=== PATIENT | female | born 1980 | race Two or more races ===

== ENCOUNTER 2016-04-28 16:44 | Emergency (ER) | payer MEDICAID ==
[~2016-04-28] VITALS: Wt 77.5 kg
[~2016-04-28 16:44] MED LIST: AZIT250T94 PO; BENZ100C70 PO; CETI10CA PO; CYCL5TAB PO; FERR-31 PO; FLUT9.9S NASAL; FOLI-49 PO; GUAI118L94 PO; HYDR-3498 PO; HYDR-3720 PO; IBUP-1542 PO; IBUP800T25 PO; METH-70 PO; OMEP20CA9 PO; PRED20TA PO; PREN-29 PO
[2016-04-28] MEDS ORDERED: BENZ100C70 PO (18:18)
[2016-04-28] MEDS ORDERED: AZIT250T94 PO (18:18)
[2016-04-28] MEDS ORDERED: IBUP-1542 PO (18:19)
[2016-04-28] MEDS ORDERED: D-ME473S2 PO (18:19)
--- NOTE | 2016-04-28 19:53 | ERD ---
ER Documentation Chief Complaint Date/Time DATE: 04/28/16 TIME: 19:50 Chief Complaint cough HPI Patient is a 35-year-old female who presents to the ED with cough for 3 weeks. She also states that she has had tactile fevers at home. Denies hemoptysis, night sweats or green sputum. Denies shortness of breath or difficulty breathing. Denies chest pain. Denies abdominal pain, nausea, vomiting or diarrhea. She also complains of sore throat and runny nose. Denies headache, dizziness or ear pain. States that multiple people in her household have had similar symptoms. Denies leg pain or swelling. Denies recent travel or recent surgeries or OCP use. ROS All systems reviewed and are negative except as per history of present illness. Medications Home Meds Active Scripts Ibuprofen* (Motrin*) 600 Mg Tab, 600 MG PO Q6, #30 TAB Prov:TIRSOTARIANJUANAZ PA-C 04/28/16 Dextromethorphan Hb-Promethazine Hcl* (Promethazine DM* Syrup) 473 Ml Syrup, 5 ML PO Q6 Y for COUGH for 7 Days, ML Prov:TIRSOTARIANCLARENCE PA-C 04/28/16 Benzonatate* (Tessalon Perle*) 100 Mg Capsule, 100 MG PO Q8H Y for COUGH for 14 Days, CAP Prov:CLARENCE NEVAREZ PA-C 04/28/16 Azithromycin* (Zithromax*) 250 Mg Tablet, 250 MG PO .ZPACK DIRECTED, #6 TAB TAKE 500 MG (2 TABS) THE FIRST DAY THEN 250 MG (1 TAB) DAYS 2-5 Prov:CLARENCE NEVAREZ PA-C 04/28/16 Benzonatate* (Tessalon Perle*) 100 Mg Capsule, 100 MG PO Q8H Y for COUGH, #20 CAP Prov:ARACELI BUCHANAN MD 11/05/15 Ibuprofen* (Motrin*) 600 Mg Tab, 600 MG PO Q6H Y for PAIN AND OR ELEVATED TEMP, #30 TAB Prov:ARACELI BUCHANAN MD 11/05/15 Omeprazole* (Prilosec*) 20 Mg Capsule.dr, 20 MG PO DAILY, #30 CAP Prov:LEANNE MOJICA NP 08/19/15 Fluticasone Propionate (Flonase Allergy Relief) 9.9 Ml [place].susp, 1 SPRAY NASAL BID, #1 BOTTLE TO EACH NOSTRIL Prov:LEANNE MOJICA NP 08/19/15 Cetirizine Hcl* (Zyrtec*) 10 Mg Capsule, 10 MG PO DAILY, #30 TAB.CHEW Prov:LEANNE MOJICA NP 08/19/15 Guaifenesin-Codeine Phosphate* (Guaifenesin* with Codeine Liq) 120 Ml Liquid, 5 ML PO Q4H for COUGH, #60 ML Prov:LEANNE MOJICA NP 08/19/15 Hydrocodone Bit-Acetaminophen* ([place]*) 5-325 Mg Tab, 1 TAB PO Q6 Y for PAIN, # 20 TAB Prov:LEANNE MOJICA NP 08/19/15 Ibuprofen* (Motrin*) 600 Mg Tab, 600 MG PO Q6H Y for PAIN AND OR ELEVATED TEMP, #30 TAB Prov:LEANNE MOJICA NP 08/19/15 Cyclobenzaprine Hcl* (Cyclobenzaprine Hcl*) 5 Mg Tablet, 5 MG PO Q8H Y for MUSCLE SPASMS, #15 TAB Prov:LEANNE MOJICA NP 08/19/15 Benzonatate* (Tessalon Perle*) 100 Mg Capsule, 100 MG PO Q8H Y for COUGH, #30 CAP Prov:ROSALIND SWAINC 07/30/15 Cetirizine Hcl* (Zyrtec*) 10 Mg Capsule, 10 MG PO DAILY, #30 TAB.CHEW Prov:ROSALIND SWAIN-C 07/30/15 Cetirizine Hcl* (Zyrtec*) 10 Mg Capsule, 10 MG PO DAILY, #10 TAB.CHEW Prov:DICK VALENTIN NP 07/10/15 Azithromycin* (Zithromax*) 250 Mg Tablet, 250 MG PO .MARTIN DIRECTED, #6 TAB TAKE 500 MG (2 TABS) THE FIRST DAY THEN 250 MG (1 TAB) DAYS 2-5 Prov:EFRAIN HENAO DO 05/27/15 Prednisone* (Prednisone*) 20 Mg Tab, 60 MG PO DAILY for 5 Days, TAB Prov:RAFA HENAOSTOLOS A. DO 05/27/15 Ibuprofen* (Motrin*) 800 Mg Tab, 800 MG PO Q6H Y for PAIN AND OR ELEVATED TEMP, #30 TAB Prov:RAFA HENAOSTOLOS A. DO 05/27/15 Methocarbamol* (Robaxin*) 750 Mg Tablet, 750 MG PO TID, #30 TAB Prov:JULIANORAFASTOLOS A. DO 05/27/15 Hydrocodone Bit-Acetaminophen* ([place]*) 7.5-325 Tablet, 2 TAB PO Q4H Y for PAIN , #30 TAB Prov:RAFA HENAOSTOLOS A. DO 05/27/15 Azithromycin* (Zithromax*) 250 Mg Tablet, 250 MG PO .ZPACK DIRECTED, #6 TAB TAKE 500 MG (2 TABS) THE FIRST DAY THEN 250 MG (1 TAB) DAYS 2-5 Prov:ESTELLE CASTELLANOS PA-C 04/12/15 Prednisone* (Prednisone*) 20 Mg Tab, 40 MG PO DAILY for 4 Days, TAB Prov:ESTELLE CASTELLANOS PA-C 04/12/15 Benzonatate* (Tessalon Perle*) 100 Mg Capsule, 100 MG PO Q8H Y for COUGH, #30 CAP Prov:ARACELI BUCHANAN MD 04/05/15 Reported Medications Folic Acid* (Folic Acid*) 1 Mg Tablet, 1 MG PO DAILY, TAB 05/22/14 Ferrous Sulfate (Iron Supplement) 1 Tab Tablet, 1 TAB PO DAILY 05/22/14 Vit-Fe Fumarate-FA* (Pk Tablet*) 1 Tab Tablet, 1 TAB PO DAILY, TAB 05/22/14 Allergies Allergies: Coded Allergies: No Known Allergy (Unverified , 08/19/15) PMhx/Soc History of Surgery: No Anesthesia Reaction: No Hx Neurological Disorder: No Hx Respiratory Disorders: No Hx Cardiac Disorders: No Hx Psychiatric Problems: No Hx Miscellaneous Medical Probl: No Hx Alcohol Use: No Hx Substance Use: No Hx Tobacco Use: No Smoking Status: Never smoker FmHx Family History: No coronary disease, No diabetes, No other Physical Exam Vitals Vital Signs Date Time Temp Pulse Resp B/P Pulse Ox O2 Delivery O2 Flow Rate FiO2 04/28/16 16:47 99.2 99 20 128/69 99 Physical Exam GENERAL: Well-developed, well-nourished female. Appears in no acute distress. HEAD: Normocephalic, atraumatic. EYES: Pupils are equally reactive bilaterally. EOMs grossly intact. No conjunctival erythema. ENT: Moist mucous membranes. No uvula deviation. No kissing tonsils. No exudates. NECK: Supple. No lymphadenopathy or thyromegaly. No meningismus. negative kernig. negative brudinski. LUNG: Clear to auscultation bilaterally. No rhonchi, wheezing, rales or coarse breath sounds. HEART: Regular rate and rhythm. No murmurs, rubs or gallops. Extremities: Equal pulses bilaterally. No peripheral clubbing, cyanosis or edema. No unilateral leg swelling. NEUROLOGIC: Alert and oriented. Moving all four extremities. 5/5 strength in all extremities. Normal speech. Steady gait. SKIN: Normal color. Warm and dry. No rashes or lesions. Capillary refill < 2 seconds Procedures/MDM ER COURSE: I kept the patient and/or family informed of laboratory and diagnostic imaging results throughout the emergency room course. MEDICAL DECISION MAKING: This is a 35-year-old female who presents with cough, runny nose and sore throat. Vital signs were reviewed. Patient is afebrile. Patient is not hypoxic. Patient is not toxic or ill-appearing. Patient refused chest x-ray in the ED and did not want to wait for results or to have the xray done. I explained the risks versus benefits of it and advised her that we cannot rule out penumonia or other pulmonary emergencies. Patient understood and agreed with no chest xray in the ED. Patient was only requesting medicine and was in a ward to leave the ED. Patient has cough of unknown etiology. Low suspicion for pneumonia, PE , pneumothorax, ACS, epiglottitis, obstruction, TB, pertussis, meningitis, sepsis. PERC Criteria Assessment: Age > 50: No HR > 100: No 02 < 95%: No H/o DVT/PE: No Recent trauma/surgery: No Hemoptysis: No Exogenous Estrogen: No Unilateral Leg swelling: No Pretest probability > 15%: No [Less than 2% risk of PE. No further work up is necessary] DISCHARGE: At this time, patient is stable for discharge and outpatient management with no new complaints during the ER course. Patient was sent home with azithromycin, Tessalon Perles, Promethazine DM and Motrin. Patient will be discharged home with instructions to recheck for new or worsening symptoms such as fever, nausea , weakness, LOC and to follow up with primary care in the next 1-2 days. Patient was advised to return to the ER for any new or worsening symptoms. Plan was discussed and patient and/or family understands and agrees. Home instructions were given. Departure Diagnosis: Primary Impression: Cough Condition: Stable Patient Instructions: Cough, Chronic, Uncertain Cause, (Adult) Additional Instructions: Call your primary care doctor TOMORROW for an appointment during the next 1-2 days.See the doctor sooner or return here if your condition worsens before your appointment time. CLARENCE NEVAREZ PA-C Apr 28, 2016 19:53
== END 2016-04-28 18:28 | disposition home or self-care (01) ==
LOC: FTE 16:44
DX: R05 Cough (principal)
CPT/HCPCS: 99284

== ENCOUNTER 2016-05-02 15:08 | Emergency (ER) | payer MEDICAID ==
[~2016-05-02] VITALS: Wt 77.8 kg
[~2016-05-02 15:08] MED LIST changes: +D-ME473S2 PO
--- NOTE | 2016-05-02 15:36 | EN ---
Date/Time of Note Date/Time of Note DATE: 05/02/16 TIME: 15:34 ER Progress Note This is a 35-year-old female who was evaluated in [facility] presenting to the emergency room complaining of cough for the past 6 months, patient states that the cough has been worsening. Patient is requesting a blood test however I discussed with this discussion of the next provided I will see her. On examination patient's had mild wheezing bilaterally, her pulse ox 90%. She is breathing well on room air without any evidence of respiratory distress. Patient patient will need to be sent to ER to for a chest x-ray for cough. ENEIDA MERLOS PA-C May 02, 2016 15:36
--- NOTE | 2016-05-02 16:31 | ERA ---
ER Documentation Chief Complaint Date/Time DATE: 05/02/16 TIME: 16:30 Chief Complaint cough and intermittent fevers for a few week. HPI The patient is a 35-year-old female, presenting to the ER because of chronic cough for more than 6 months with chronic nasal congestion. She denies fever, chills, neck pain, chest pain, dyspnea, abdominal pain, vomiting, diarrhea, dysuria; she does not smoke, drink Past medical/surgical history: None ROS All systems reviewed and are negative except as per history of present illness. Medications Home Meds Active Scripts Fluticasone Propionate (Flonase Allergy Relief) 9.9 Ml [place].susp, 2 SPRAY NASAL DAILY, #1 BOTTLE TO EACH NOSTRIL Prov:BUBBA VILCHIS MD 05/02/16 Promethazine HCl/Codeine (Prometh-Codein 6.25-10 mg/5 ml) 5 Ml Syrup, 5 ML PO Q4 for COUGH, #120 Prov:BUBBA VILCHIS MD 05/02/16 Ibuprofen* (Motrin*) 600 Mg Tab, 600 MG PO Q6, #30 TAB Prov:CLARENCE NEVAREZ PA-C 04/28/16 Dextromethorphan Hb-Promethazine Hcl* (Promethazine DM* Syrup) 473 Ml Syrup, 5 ML PO Q6 Y for COUGH for 7 Days, ML Prov:CLARENCE NEVAREZ-C 04/28/16 Benzonatate* (Tessalon Perle*) 100 Mg Capsule, 100 MG PO Q8H Y for COUGH for 14 Days, CAP Prov:CLARENCE NEVAREZ PA-C 04/28/16 Azithromycin* (Zithromax*) 250 Mg Tablet, 250 MG PO .ZPACK DIRECTED, #6 TAB TAKE 500 MG (2 TABS) THE FIRST DAY THEN 250 MG (1 TAB) DAYS 2-5 Prov:CLARENCE NEVAREZ-C 04/28/16 Benzonatate* (Tessalon Perle*) 100 Mg Capsule, 100 MG PO Q8H Y for COUGH, #20 CAP Prov:ARACELI BUCHANAN MD 11/04/ Ibuprofen* (Motrin*) 600 Mg Tab, 600 MG PO Q6H Y for PAIN AND OR ELEVATED TEMP, #30 TAB Prov:ARACELI BUCHANAN MD 11/05/15 Omeprazole* (Prilosec*) 20 Mg Capsule.dr, 20 MG PO DAILY, #30 CAP Prov:LEANNE MOJICA NP 08/19/15 Fluticasone Propionate (Flonase Allergy Relief) 9.9 Ml [place].susp, 1 SPRAY NASAL BID, #1 BOTTLE TO EACH NOSTRIL Prov:LEANNE MOJICA NP 08/19/15 Cetirizine Hcl* (Zyrtec*) 10 Mg Capsule, 10 MG PO DAILY, #30 TAB.CHEW Prov:LEANNE MOJICA NP 08/19/15 Guaifenesin-Codeine Phosphate* (Guaifenesin* with Codeine Liq) 120 Ml Liquid, 5 ML PO Q4H for COUGH, #60 ML Prov:LEANNE MOJICA NP 08/19/15 Hydrocodone Bit-Acetaminophen* ([place]*) 5-325 Mg Tab, 1 TAB PO Q6 Y for PAIN, # 20 TAB Prov:LEANNE MOJICA NP 08/19/15 Ibuprofen* (Motrin*) 600 Mg Tab, 600 MG PO Q6H Y for PAIN AND OR ELEVATED TEMP, #30 TAB Prov:LEANNE MOJICA NP 08/19/15 Cyclobenzaprine Hcl* (Cyclobenzaprine Hcl*) 5 Mg Tablet, 5 MG PO Q8H Y for MUSCLE SPASMS, #15 TAB Prov:LEANNE MOJICA NP 08/19/15 Benzonatate* (Tessalon Perle*) 100 Mg Capsule, 100 MG PO Q8H Y for COUGH, #30 CAP Prov:ROSALIND SWAIN PA-C 07/30/15 Cetirizine Hcl* (Zyrtec*) 10 Mg Capsule, 10 MG PO DAILY, #30 TAB.CHEW Prov:ROSALIND SWAIN PA-C 07/30/15 Cetirizine Hcl* (Zyrtec*) 10 Mg Capsule, 10 MG PO DAILY, #10 TAB.CHEW Prov:DICK VALENTIN NP 07/10/15 Azithromycin* (Zithromax*) 250 Mg Tablet, 250 MG PO .MARTIN DIRECTED, #6 TAB TAKE 500 MG (2 TABS) THE FIRST DAY THEN 250 MG (1 TAB) DAYS 2-5 Prov:EFRAIN HENAO. DO 05/27/15 Prednisone* (Prednisone*) 20 Mg Tab, 60 MG PO DAILY for 5 Days, TAB Prov:RAFA HENAOSTOLOS A. DO 05/27/15 Ibuprofen* (Motrin*) 800 Mg Tab, 800 MG PO Q6H Y for PAIN AND OR ELEVATED TEMP, #30 TAB Prov:RAFA HENAOSTOLOS A. DO 05/27/15 Methocarbamol* (Robaxin*) 750 Mg Tablet, 750 MG PO TID, #30 TAB Prov:TANIA HENAOS A. DO 05/27/15 Hydrocodone Bit-Acetaminophen* ([place]*) 7.5-325 Tablet, 2 TAB PO Q4H Y for PAIN , #30 TAB Prov:ANNETTA HENAOOLOS A. DO 05/27/15 Azithromycin* (Zithromax*) 250 Mg Tablet, 250 MG PO .MARTIN DIRECTED, #6 TAB TAKE 500 MG (2 TABS) THE FIRST DAY THEN 250 MG (1 TAB) DAYS 2-5 Prov:ESTELLE CASTELLANOS PA-C 04/12/15 Prednisone* (Prednisone*) 20 Mg Tab, 40 MG PO DAILY for 4 Days, TAB Prov:ESTELLE CASTELLANOS PA-C 04/12/15 Benzonatate* (Tessalon Perle*) 100 Mg Capsule, 100 MG PO Q8H Y for COUGH, #30 CAP Prov:ARACELI BUCHANAN MD 04/05/15 Reported Medications Folic Acid* (Folic Acid*) 1 Mg Tablet, 1 MG PO DAILY, TAB 05/22/14 Ferrous Sulfate (Iron Supplement) 1 Tab Tablet, 1 TAB PO DAILY 05/22/14 Vit-Fe Fumarate-FA* (Pk Tablet*) 1 Tab Tablet, 1 TAB PO DAILY, TAB 05/22/14 Allergies Allergies: Coded Allergies: No Known Allergy (Unverified , 08/19/15) PMhx/Soc History of Surgery: No Anesthesia Reaction: No Hx Neurological Disorder: No Hx Respiratory Disorders: No Hx Cardiac Disorders: No Hx Psychiatric Problems: No Hx Miscellaneous Medical Probl: No Hx Alcohol Use: No Hx Substance Use: No Hx Tobacco Use: No Physical Exam Vitals Vital Signs Date Time Temp Pulse Resp B/P Pulse Ox O2 Delivery O2 Flow Rate FiO2 05/02/16 15:11 98.9 83 20 126/66 98 Physical Exam Const: No acute distress. Head: Atraumatic. Eyes: Normal Conjunctiva. ENT: Normal External Ears, Nose and Mouth. Bilateral tympanic membranes and oropharynx are within normal limit Neck: Full range of motion. No meningismus. Resp: Clear to auscultation bilaterally. Cardio: Regular rate and rhythm, no murmurs. Abd: Soft, non distended, normal bowel sounds, non tender. Skin: No petechiae or rashes. Back: No midline or flank tenderness. Ext: No cyanosis, or edema. Neur: Awake and alert. No focal deficit Psych: Normal Mood and Affect. Procedures/MDM MEDICAL MAKING DECISION: The patient is a 34-year-old female, presenting with chronic allergic rhinitis. The differential diagnoses considered include but are not limited to asthma, reactive airway disease, sinusitis, bronchitis, seasonal allergy, COPD, pneumonia, pulmonary embolus, pleural effusion, congestive heart failure. Departure Diagnosis: Primary Impression: Allergic rhinitis Condition: Good Comments She was discharged with Phenergan with codeine, Flonase, Claritin-D I discussed the findings with the patient. I advised the patient to follow-up with the primary physician in about 1-2 days, sooner if needed and return if any concern. The patient's blood pressure was elevated (>120/80) but appears stable without evidence of hypertension emergency or urgency. The patient was counseled about the risks of hypertension and urged to pursue outpatient monitoring and therapy within a week with their primary care physician. BUBBA VILCHIS MD May 02, 2016 16:31
[2016-05-02] MEDS ORDERED: PROM5SYR2 PO (17:00)
[2016-05-02] MEDS ORDERED: FLUT9.9S NASAL (17:00)
== END 2016-05-02 17:00 | disposition home or self-care (01) ==
LOC: FTE 15:08
DX: J30.9 Allergic rhinitis, unspecified (principal)
CPT/HCPCS: 99283

== ENCOUNTER 2016-06-09 09:00 | Emergency (ER) | payer MEDICAID ==
[~2016-06-09] VITALS: Wt 78.5 kg
[~2016-06-09 09:00] MED LIST changes: +ALBU8.5H3 INH; +PROM5SYR2 PO
[2016-06-09 09:04] VITALS: Wt 78.5 kg
--- NOTE | 2016-06-09 10:05 | ERD ---
ER Documentation Chief Complaint Date/Time DATE: 06/09/16 TIME: 10:03 Chief Complaint 5-6 DAYS OF ABNORMAL VAGINAL BLEEDING. NO . INTERMITTENT PAIN HPI 35-year-old female who presented to the emergency room for lower abdominal/ pelvic pain for about 5-6 days. Stated that she has irregular menstrual period. Stated distress history of ovarian cyst. Stated that her pain got worse today. Pain was described as sharp non-radiating. Denies headache, loss of consciousness, dizziness, blurry vision, changes in vision, photophobia, facial pain, ear pain, throat pain, difficulty swallowing, neck pain, shoulder pain, chest pain, cough, hemoptysis, loss of appetite, nausea, vomiting, hematochezia, diarrhea, constipation, , the possibility of being , bladder and bowel incontinences, extremity weakness, extremity tenderness, numbness or tingling sensation, difficulty walking, recent travel, recent exposure to illness, recent antibiotic use in the last 3 months, fever, chills. Allergy: No known drug allergies. PMH: Ovarian cysts. Family medical history: AO LMP: 05/13/2016 Medications: Surgery: Primary Social History: Not working at this time. Denies smoking, use of alcohol, use of illegal drugs. ROS All systems reviewed and are negative except as per history of present illness. Medications Home Meds Active Scripts Ibuprofen* (Motrin*) 600 Mg Tab, 600 MG PO Q6H Y for PAIN AND OR ELEVATED TEMP, #30 TAB Prov:TRIXIE PHELPS 06/09/16 Fluticasone Propionate (Flonase Allergy Relief) 9.9 Ml Coleman.susp, 1 SPRAY NASAL DAILY, #1 BOTTLE TO EACH NOSTRIL Prov:LAURA BARNHART 05/14/16 Prednisone* (Prednisone*) 20 Mg Tab, 40 MG PO DAILY for 4 Days, TAB Prov:LAURA BARNHART 05/14/16 Albuterol Sulfate* (Proair HFA*) 8.5 Gm Hfa.aer.ad, 2 PUFF INH Q4, #1 INHALER Prov:LAURA BARNHART 05/14/16 Fluticasone Propionate (Flonase Allergy Relief) 9.9 Ml Coleman.susp, 2 SPRAY NASAL DAILY, #1 BOTTLE TO EACH NOSTRIL Prov:BUBBA VILCHIS MD 05/02/16 Promethazine HCl/Codeine (Prometh-Codein 6.25-10 mg/5 ml) 5 Ml Syrup, 5 ML PO Q4 for COUGH, #120 Prov:BUBBA VILCHIS MD 05/02/16 Ibuprofen* (Motrin*) 600 Mg Tab, 600 MG PO Q6, #30 TAB Prov:CLARENCE NEVAREZ PA-C 04/28/16 Dextromethorphan Hb-Promethazine Hcl* (Promethazine DM* Syrup) 473 Ml Syrup, 5 ML PO Q6 Y for COUGH for 7 Days, ML Prov:TIRSOTARIJUAN MARTINEZAZ PA-C 04/28/16 Benzonatate* (Tessalon Perle*) 100 Mg Capsule, 100 MG PO Q8H Y for COUGH for 14 Days, CAP Prov:CLARENCE NEVAREZ PA-C 04/28/16 Azithromycin* (Zithromax*) 250 Mg Tablet, 250 MG PO .ZPACK DIRECTED, #6 TAB TAKE 500 MG (2 TABS) THE FIRST DAY THEN 250 MG (1 TAB) DAYS 2-5 Prov:CLARENCE NEVAREZ PA-C 04/28/16 Benzonatate* (Tessalon Perle*) 100 Mg Capsule, 100 MG PO Q8H Y for COUGH, #20 CAP Prov:ARACELI BUCHANAN MD 11/05/15 Ibuprofen* (Motrin*) 600 Mg Tab, 600 MG PO Q6H Y for PAIN AND OR ELEVATED TEMP, #30 TAB Prov:ARACELI BUCHANAN MD 11/05/15 Omeprazole* (Prilosec*) 20 Mg Capsule.dr, 20 MG PO DAILY, #30 CAP Prov:LEANNE MOJICA NP 08/19/15 Fluticasone Propionate (Flonase Allergy Relief) 9.9 Ml Coleman.susp, 1 SPRAY NASAL BID, #1 BOTTLE TO EACH NOSTRIL Prov:LEANNE MOJICA NP 08/19/15 Cetirizine Hcl* (Zyrtec*) 10 Mg Capsule, 10 MG PO DAILY, #30 TAB.CHEW Prov:LEANNE MOJICA NP 08/19/15 Guaifenesin-Codeine Phosphate* (Guaifenesin* with Codeine Liq) 120 Ml Liquid, 5 ML PO Q4H for COUGH, #60 ML Prov:LEANNE MOJICA CONSULTING SYSTEMS ENGINEER 08/19/15 Hydrocodone Bit-Acetaminophen* (Ruso*) 5-325 Mg Tab, 1 TAB PO Q6 Y for PAIN, # 20 TAB Prov:LEANNE MOJICA CONSULTING SYSTEMS ENGINEER 08/19/15 Ibuprofen* (Motrin*) 600 Mg Tab, 600 MG PO Q6H Y for PAIN AND OR ELEVATED TEMP, #30 TAB Prov:LEANNE MOJICA CONSULTING SYSTEMS ENGINEER 08/19/15 Cyclobenzaprine Hcl* (Cyclobenzaprine Hcl*) 5 Mg Tablet, 5 MG PO Q8H Y for MUSCLE SPASMS, #15 TAB Prov:LEANNE MOJICA CONSULTING SYSTEMS ENGINEER 08/19/15 Benzonatate* (Tessalon Perle*) 100 Mg Capsule, 100 MG PO Q8H Y for COUGH, #30 CAP Prov:ROSALIND SWAINC 07/30/15 Cetirizine Hcl* (Zyrtec*) 10 Mg Capsule, 10 MG PO DAILY, #30 TAB.CHEW Prov:ROSALIND SWAIN-C 07/30/15 Cetirizine Hcl* (Zyrtec*) 10 Mg Capsule, 10 MG PO DAILY, #10 TAB.CHEW Prov:DICK VALENTIN I. CONSULTING SYSTEMS ENGINEER 07/10/15 Azithromycin* (Zithromax*) 250 Mg Tablet, 250 MG PO .MARTIN DIRECTED, #6 TAB TAKE 500 MG (2 TABS) THE FIRST DAY THEN 250 MG (1 TAB) DAYS 2-5 Prov:EFRAIN HENAO DO 05/27/15 Prednisone* (Prednisone*) 20 Mg Tab, 60 MG PO DAILY for 5 Days, TAB Prov:EFRAIN HENAO DO 05/27/15 Ibuprofen* (Motrin*) 800 Mg Tab, 800 MG PO Q6H Y for PAIN AND OR ELEVATED TEMP, #30 TAB Prov:EFRAIN HENAO DO 05/27/15 Methocarbamol* (Robaxin*) 750 Mg Tablet, 750 MG PO TID, #30 TAB Prov:EFRAIN HENAO DO 05/27/15 Hydrocodone Bit-Acetaminophen* (Ruso*) 7.5-325 Tablet, 2 TAB PO Q4H Y for PAIN , #30 TAB Prov:EFRAIN HENAO YueKatherin LEVINE 05/27/15 Azithromycin* (Zithromax*) 250 Mg Tablet, 250 MG PO .ZPACK DIRECTED, #6 TAB TAKE 500 MG (2 TABS) THE FIRST DAY THEN 250 MG (1 TAB) DAYS 2-5 Prov:ESTELLE CASTELLANOS PA-C 04/12/15 Prednisone* (Prednisone*) 20 Mg Tab, 40 MG PO DAILY for 4 Days, TAB Prov:ESTELLE CSATELLANOS PA-C 04/12/15 Benzonatate* (Tessalon Perle*) 100 Mg Capsule, 100 MG PO Q8H Y for COUGH, #30 CAP Prov:ARACELI BUCHANAN MD 04/05/15 Reported Medications Folic Acid* (Folic Acid*) 1 Mg Tablet, 1 MG PO DAILY, TAB 05/22/14 Ferrous Sulfate (Iron Supplement) 1 Tab Tablet, 1 TAB PO DAILY 05/22/14 Vit-Fe Fumarate-FA* (Pk Tablet*) 1 Tab Tablet, 1 TAB PO DAILY, TAB 05/22/14 Allergies Allergies: Coded Allergies: No Known Allergy (Unverified , 08/19/15) PMhx/Soc History of Surgery: No Anesthesia Reaction: No Hx Neurological Disorder: No Hx Respiratory Disorders: No Hx Cardiac Disorders: No Hx Psychiatric Problems: No Hx Miscellaneous Medical Probl: No Hx Alcohol Use: No Hx Substance Use: No Hx Tobacco Use: No Physical Exam Vitals Vital Signs Date Time Temp Pulse Resp B/P Pulse Ox O2 Delivery O2 Flow Rate FiO2 06/09/16 09:04 98.2 78 21 131/60 98 Physical Exam CONSTITUTIONAL: Well-appearing; well-nourished; in no apparent distress. HEAD: Normocephalic; atraumatic. EYES: Conjunctiva clear, sclera non-icteric, EOM intact. PERRL Ears: Hearing intact. EACs clear, TMs non-bulging, non-inflamed, translucent & mobile, ossicles normal appearance, No obstructions, no erythema, no discharges Nose: No obstructions. No polyps. No external lesions. Mucosa non-inflamed. No external lesions, septum and turbinates normal. No rhinorrhea. No discharges. Frontal sinus is non-tender to palpation. Maxillary sinus is non-tender to palpation. MOUTH: Moist mucous membranes, no lesion, no obstructions, no vesicles, no thrush, patent airway Throat: Uvula in midline. Right tonsil is +1 with no erythema, no exudate. Left tonsil is +1 with no erythema, no exudate. Tolerating secretions well. Good gag reflex. Patent airway. Neck: Supple, without lesions, bruits, or adenopathy. No mass. Thyroid non- enlarged and non-tender to palpation. CHEST: Symmetrical chest. Respirations even and not labored. No retractions noted. CARDIOVASCULAR: Normal S1, S2. RRR. No murmurs, gallops. RESPIRATORY: Normal chest excursion with respiration; breath sounds clear and equal bilaterally; no wheezes, rhonchi, or rales. Breathing even and unlabored. Speaking in clear, full, and complete sentences w/ ease. ABDOMEN: Normal bowel sounds normal. Soft, round, non-distended, non-guarding, no tenderness, no rebound, no organomegaly, no masses, no pulsating abdominal mass. No hernia. She has mild tenderness to pelvic area. No peritoneal signs. : No CVA tenderness. BACK: Symmetrical shoulder. Spine is midline without deformity, tenderness. No evidence of trauma or deformity. PELVIS: Stable pelvis. No evidence of trauma or deformity. Has pelvic pain. MUSCULOSKELETAL: Normal gait and station. No misalignment, asymmetry, crepitation, defects, tenderness, masses, effusions, decreased range of motion, instability, atrophy or abnormal strength or tone in the head, neck, spine, ribs , pelvis or extremities. No calf tenderness. NEUROVASCULAR: Distal pulses are present. Pedal pulse are present, equal, and normal. Capillary refills are < 2 seconds. NEUROLOGIC: Alert and oriented x4. Speaks full and clear sentences. Cranial Nerves II-XII normal. Sensation to pain, touch, and proprioception normal. Grossly unremarkable. No neurologic deficits. Romberg test is negative. PSYCHOLOGICAL: The patients mood and manner are appropriate. No hallucinations , delusions. Not SI. Not HI. Has the capacity to decide for self SKIN: Normal for age and ethnicity; warm; dry; good turgor; no apparent lesions or exudates. No rashes, hives, discoloration. Intact. Result Diagram: 06/09/16 1015 06/09/16 1015 Results 24 hrs Laboratory Tests Test 06/09/16 10:15 06/09/16 11:05 White Blood Count 6.610^3/ul Red Blood Count 4.7610^6/ul Hemoglobin 13.3g/dl Hematocrit 40.1% Mean Corpuscular Volume 84.2fl Mean Corpuscular Hemoglobin 27.9pg Mean Corpuscular Hemoglobin Concent 33.2g/dl Red Cell Distribution Width 12.5% Platelet Count 47352^3/UL Mean Platelet Volume 10.3fl Neutrophils % 63.8% Lymphocytes % 24.9% Monocytes % 5.6% Eosinophils % 4.9% Basophils % 0.5% Nucleated Red Blood Cells % 0.0/100WBC Neutrophils # 4.210^3/ul Lymphocytes # 1.610^3/ul Monocytes # 0.410^3/ul Eosinophils # 0.310^3/ul Basophils # 0.010^3/ul Nucleated Red Blood Cells # 0.010^3/ul Sodium Level 143mmol/L Potassium Level 4.1mmol/L Chloride Level 105mmol/L Carbon Dioxide Level 27mmol/L Anion Gap 15 Blood Urea Nitrogen 8mg/dl Creatinine 0.62mg/dl Glucose Level 93mg/dl Calcium Level 8.9mg/dl Total Bilirubin 0.2mg/dl Direct Bilirubin 0.00mg/dl Indirect Bilirubin 0.2mg/dl Aspartate Amino Transf (AST/SGOT) 15IU/L Alanine Aminotransferase (ALT/SGPT) 29IU/L Alkaline Phosphatase 79IU/L Total Protein 7.2g/dl Albumin 4.4g/dl Globulin 2.80g/dl Albumin/Globulin Ratio 1.57 Urine Color LT. YELLOW Urine Clarity CLEAR Urine pH 6.0 Urine Specific [place] 1.015 Urine Ketones NEGATIVE Urine Nitrite NEGATIVE Urine Bilirubin NEGATIVE Urine Urobilinogen 0.2 E.U./dL Urine Leukocyte Esterase NEGATIVE Urine Microscopic RBC 5-10/HPF Urine Microscopic WBC NONE SEEN/HPF Urine Squamous Epithelial Cells FEW Urine Hemoglobin 3+ Urine Glucose NEGATIVE% Urine Total Protein NEGATIVE Current Medications Medications (Trade) Dose Ordered Sig/Tayo Route PRN Reason Start Time Stop Time Status Last Admin Dose Admin Ibuprofen (Motrin) 600 mg ONCE ONCE PO 06/09/16 10:30 06/09/16 10:31 DC 06/09/16 10:15 Procedures/MDM Examination: Please see physical examination. Disease process, medical treatment was explained to the patient and family member. They verbalized understanding and agreed with the diagnostic tests, medical treatment, and follow-up care. Radiology: Ultrasound of the pelvis Impression: Small fibroid within the uterus. A small 1.8 cm simple cyst in the left ovary. Blood works: Reviewed. POC urine : Negative. Urinalysis: Reviewed. Treatment: Motrin. Re-evaluation: Denies chest pain, back pain, abdominal pain, pelvic pain. No nausea and vomiting. Unremarkable abdominal reexamination. No peritoneal signs. No right upper abdominal pain on palpation. No right lower abdominal pain on palpation. No CVA tenderness. Ambulatory with steady gait. Consultation: None. Differential diagnosis: Ovarian cyst rupture versus ovarian torsion versus ovarian cysts versus pelvic pain Medical decision makin-year-old female who presented to the emergency room for lower abdominal/pelvic pain for about 5-6 days. Stated that she has irregular menstrual period. Stated distress history of ovarian cyst. Stated that her pain got worse today. Pain was described as sharp non-radiating. Patient's complaint, patient's history about her complaint, my physical findings , diagnostic test results are consistent with my final diagnosis of uterine fibroids. Medications prescribed are the following: Motrin. Patient and family member are made aware of the side effects and adverse reactions of the medications prescribed. Instructed on when to seek emergent and medical attention in case allergic/anaphylactic reactions or severe side effects and or adverse reactions to medications. Patient and family member verbalized understanding. Patient instructed Instructed to follow-up with his PCP in 24-48 hours. Follow-up with TWISTING FRAME OPERATOR in the next 24-48 hours. Patient stated that she will make sure to see an TWISTING FRAME OPERATOR in the next 48 hours. Instructed to Call 911 for chest pain, shortness of breath. Advised to come back here in ED as soon as possible for severity of symptoms which includes but not limited to: any new symptoms; shortness of breath/difficulty of breathing; cardiovascular changes; severe gastrointestinal symptoms; signs and symptoms of bleeding and or infection; signs of compartment syndrome/neurovascular changes; neurological changes/deficits. Patient and family member verbalized understanding. Upon discharge, patient is alert and oriented x 4, speaks full and clear sentences, denies pain, has no neurological deficits, has no neurovascular deficits, difficulty of breathing. Breathing even and unlabored. Lung sounds are clear to auscultation. Denies vaginal bleeding. No active bleeding. Not in distress. Appears comfortable. Ambulatory with steady gait. Appears satisfied with care provided here in ED. Departure Diagnosis: Primary Impression: Uterine fibroid Condition: Good Additional Instructions: Patient instructed Instructed to follow-up with his PCP in 24-48 hours. Follow-up with TWISTING FRAME OPERATOR in the next 24-48 hours. Patient stated that she will make sure to see an TWISTING FRAME OPERATOR in the next 48 hours. Instructed to Call 911 for chest pain, shortness of breath. Advised to come back here in ED as soon as possible for severity of symptoms which includes but not limited to: any new symptoms; shortness of breath/difficulty of breathing; cardiovascular changes; severe gastrointestinal symptoms; signs and symptoms of bleeding and or infection; signs of compartment syndrome/neurovascular changes; neurological changes/deficits. Patient and family member verbalized understanding. TRIXIE PHELPS Jun 09, 2016 10:05
[2016-06-09 10:27] LABS: ADD SCAN DIFF NO
[2016-06-09] MEDS ORDERED: IBUPROFEN 600 MG TAB PO ONE (10:30)
[2016-06-09 10:34] LABS: BASOPHILS % 0.5 % (0.0-2.0); EOSINOPHILS # 0.3 10^3/ul (0.0-0.5); EOSINOPHILS % 4.9 % (0.0-7.0); HEMATOCRIT 40.1 % (37.0-47.0); HEMOGLOBIN 13.3 g/dl (12.0-16.0); LYMPHOCYTES # 1.6 10^3/ul (0.8-2.9); LYMPHOCYTES % 24.9 % (15.0-51.0); MEAN CORPUSCULAR HEMOGLOBIN 27.9 pg (29.0-33.0); MEAN CORPUSCULAR HGB CONC 33.2 g/dl (32.0-37.0); MEAN CORPUSCULAR VOLUME 84.2 fl (82.0-101.0); MEAN PLATELET VOLUME 10.3 fl (7.4-10.4); MONOCYTE # 0.4 10^3/ul (0.3-0.9); MONOCYTES % 5.6 % (0.0-11.0); NEUTROPHIL # 4.2 10^3/ul (1.6-7.5); NEUTROPHILS % 63.8 % (39.0-77.0); PLATELET COUNT 392 10^3/UL (140-415); RED BLOOD COUNT 4.76 10^6/ul (4.20-5.40); RED CELL DISTRIBUTION WIDTH 12.5 % (11.5-14.5); WHITE BLOOD COUNT 6.6 10^3/ul (4.8-10.8)
[2016-06-09 10:44] LABS: ALBUMIN 4.4 g/dl (3.3-4.9); POTASSIUM 4.1 mmol/L (3.5-5.1)
[2016-06-09 10:46] LABS: BILIRUBIN,INDIRECT 0.2 mg/dl (0-1.1); BILIRUBIN,TOTAL 0.2 mg/dl (0.2-1.3); CREATININE 0.62 mg/dl (0.44-1.00)
[2016-06-09 10:47] LABS: ALBUMIN/GLOBULIN RATIO 1.57; TOTAL PROTEIN 7.2 g/dl (6.1-8.1)
[2016-06-09 10:48] LABS: CALCIUM 8.9 mg/dl (8.4-10.2)
--- NOTE | 2016-06-09 11:10 | RADRPT ---
PROCEDURE: US Pelvis. CLINICAL INDICATION: pelvic pain TECHNIQUE: Multiple sonographic images of the pelvis were obtained utilizing a transabdominal and endovaginal technique. The images were reviewed on a PACS workstation. COMPARISON: None. FINDINGS: The uterus is normal in size. There is a small 0.8 cm hypoechoic area in the anterior uterus, suspi cious for a small fibroid. The uterus measures 8.9 x 4.4 x 4.2 cm. The endometrial stripe is homogen eous in appearance and has the thickness of 3 mm. The ovaries are normal in size and echogenicity. Normal Doppler flow is identified in both ovaries. The right ovary measures 3.5 x 2.1 x 2.3 cm. The left ovary measures a 3.8 x 2.1 x 2.1 cm. There is a 1.8 cm simple cyst in the left ovary. No free fluid is present within the pelvis. RPTAT: AA IMPRESSION: Small fibroid within the uterus. Small 1.8 cm simple cyst in the left ovary. .Cristo Hurtado MD, Date Time Electronically viewed and signed by .Cristo Hurtado MD, on 06/09/2016 11:10 .S/
[2016-06-09 11:34] LABS: ADD UMIC YES; URINE BILIRUBIN (Dip) NEGATIVE (NEGATIVE); URINE BLOOD (Dip) 3+ (NEGATIVE); URINE COLOR LT. YELLOW (YELLOW); URINE GLUCOSE (Dip) NEGATIVE (NEGATIVE); URINE KETONES (Dip) NEGATIVE (NEGATIVE); URINE LEUKOCYTE ESTERASE (Dip) NEGATIVE (NEGATIVE); URINE NITRITE (Dip) NEGATIVE (NEGATIVE); URINE TOTAL PROTEIN (Dip) NEGATIVE (NEGATIVE); URINE UROBILINOGEN (Dip) 0.2 E.U./dL (0.1-1.0)
[2016-06-09 11:51] LABS: SQUAMOUS EPITHELIAL CELL,UR FEW
[2016-06-09] MEDS ORDERED: IBUP-1542 PO (11:59)
== END 2016-06-09 12:20 | disposition home or self-care (01) ==
LOC: FTE 09:00
DX: D25.9 Leiomyoma of uterus, unspecified (principal); R10.2 Pelvic and perineal pain
CPT/HCPCS: 76830; 76856; 80053; 81001; 81003; 85025; Z7610

== ENCOUNTER 2016-10-07 06:46 | Emergency (ER) | payer MEDICAID ==
[~2016-10-07] VITALS: Wt 73.0 kg
[~2016-10-07 06:46] MED LIST changes: -METH-70 PO; +METH750T93 PO
[2016-10-07 07:26] LABS: URINE BLOOD (Dip) POC Trace-lysed (NEGATIVE)
--- NOTE | 2016-10-07 07:51 | RADRPT ---
PROCEDURE: US Pelvis. CLINICAL INDICATION: pelvic pain , amenorrhea TECHNIQUE: Multiple sonographic images of the pelvis were obtained utilizing a transabdominal and endovaginal technique. The images were reviewed on a PACS workstation. COMPARISON: 06/09/16 FINDINGS: The uterus is normal in size with a normal appearance of the myometrium. The uterus measures 8.9 x 4.6 x 5.1 cm. There is a small hypoechoic mass in the anterior uterus measuring 8 mm, suspicious for a small fibro id. The endometrial stripe is homogeneous in appearance and has the thickness of 8 mm. Normal Doppler flow is identified in both ovaries. The right ovary measures 4.8 x 2.9 x 3.8 cm. There is a 3.1 x 2.5 cm simple cyst in the right ovary. The left ovary measures 3.5 x 1.8 x 2.0 cm. No free fluid is present within the pelvis. RPTAT: AA IMPRESSION: 3.1 cm simple cyst in the right ovary. Small fibroid in the uterus. .Cristo Hurtado MD, Date Time Electronically viewed and signed by .Cristo Hurtado MD, on 10/07/2016 07:51 .S/
--- NOTE | 2016-10-07 08:10 | ERD ---
ER Documentation Chief Complaint Date/Time DATE: 10/07/16 TIME: 08:08 Chief Complaint "MY MONTHLY PERIOD IS NOT COMING" HPI Is a 35-year-old female who complains of no menstrual cycle since May 2016. Her menstrual cycles were normal up until that point. The patient is taken 2 tests at home which are negative. She does have a history of an ovarian cyst but does not have any pain in the pelvis no back pain no lack of appetite no headache no blurry vision. ROS All systems reviewed and are negative except as per history of present illness. Medications Home Meds Active Scripts Ibuprofen* (Motrin*) 600 Mg Tab, 600 MG PO Q6H Y for PAIN AND OR ELEVATED TEMP, #30 TAB Prov:TRIXIE PHELPS 06/09/16 Fluticasone Propionate (Flonase Allergy Relief) 9.9 Ml [place].susp, 1 SPRAY NASAL DAILY, #1 BOTTLE TO EACH NOSTRIL Prov:LAURA BARNHART 05/14/16 Prednisone* (Prednisone*) 20 Mg Tab, 40 MG PO DAILY for 4 Days, TAB Prov:LAURA BARNHART 05/14/16 Albuterol Sulfate* (Proair HFA*) 8.5 Gm Hfa.aer.ad, 2 PUFF INH Q4, #1 INHALER Prov:LAURA BARNHART 05/14/16 Fluticasone Propionate (Flonase Allergy Relief) 9.9 Ml [place].susp, 2 SPRAY NASAL DAILY, #1 BOTTLE TO EACH NOSTRIL Prov:BUBBA VILCHIS MD 05/02/16 Promethazine HCl/Codeine (Prometh-Codein 6.25-10 mg/5 ml) 5 Ml Syrup, 5 ML PO Q4 for COUGH, #120 Prov:BUBBA VILCHIS MD 05/02/16 Ibuprofen* (Motrin*) 600 Mg Tab, 600 MG PO Q6, #30 TAB Prov:CLARENCE NEVAREZ PA-C 04/28/16 Dextromethorphan Hb-Promethazine Hcl* (Promethazine DM* Syrup) 473 Ml Syrup, 5 ML PO Q6 Y for COUGH for 7 Days, ML Prov:CLARENCE NEVAREZ PA-C 04/28/16 Benzonatate* (Tessalon Perle*) 100 Mg Capsule, 100 MG PO Q8H Y for COUGH for 14 Days, CAP Prov:CLARENCE NEVAREZ PA-C 04/28/16 Azithromycin* (Zithromax*) 250 Mg Tablet, 250 MG PO .MARTIN DIRECTED, #6 TAB TAKE 500 MG (2 TABS) THE FIRST DAY THEN 250 MG (1 TAB) DAYS 2-5 Prov:CLARENCE NEVAREZ PA-C 04/28/16 Benzonatate* (Tessalon Perle*) 100 Mg Capsule, 100 MG PO Q8H Y for COUGH, #20 CAP Prov:ARACELI BUCHANAN MD 11/05/15 Ibuprofen* (Motrin*) 600 Mg Tab, 600 MG PO Q6H Y for PAIN AND OR ELEVATED TEMP, #30 TAB Prov:ARACELI BUCHANAN MD 11/05/15 Omeprazole* (Prilosec*) 20 Mg Capsule.dr, 20 MG PO DAILY, #30 CAP Prov:LEANNE MOJICA NP 08/19/15 Fluticasone Propionate (Flonase Allergy Relief) 9.9 Ml [place].susp, 1 SPRAY NASAL BID, #1 BOTTLE TO EACH NOSTRIL Prov:LEANNE MOJICA NP 08/19/15 Cetirizine Hcl* (Zyrtec*) 10 Mg Capsule, 10 MG PO DAILY, #30 TAB.CHEW Prov:LEANNE MOJICA NP 08/19/15 Guaifenesin-Codeine Phosphate* (Guaifenesin* with Codeine Liq) 120 Ml Liquid, 5 ML PO Q4H for COUGH, #60 ML Prov:LEANNE MOJICA NP 08/19/15 Hydrocodone Bit-Acetaminophen* (Jackson*) 5-325 Mg Tab, 1 TAB PO Q6 Y for PAIN, # 20 TAB Prov:LEANNE MOJICA NP 08/19/15 Ibuprofen* (Motrin*) 600 Mg Tab, 600 MG PO Q6H Y for PAIN AND OR ELEVATED TEMP, #30 TAB Prov:LEANNE MOJICA NP 08/19/15 Cyclobenzaprine Hcl* (Cyclobenzaprine Hcl*) 5 Mg Tablet, 5 MG PO Q8H Y for MUSCLE SPASMS, #15 TAB Prov:LEANNE MOJICA NP 08/19/15 Benzonatate* (Tessalon Perle*) 100 Mg Capsule, 100 MG PO Q8H Y for COUGH, #30 CAP Prov:ROSALIND SWAINC 07/30/15 Cetirizine Hcl* (Zyrtec*) 10 Mg Capsule, 10 MG PO DAILY, #30 TAB.CHEW Prov:ROSALIND SWAINC 07/30/15 Cetirizine Hcl* (Zyrtec*) 10 Mg Capsule, 10 MG PO DAILY, #10 TAB.CHEW Prov:DICK VALENTIN IKatherin LOCK STITCH CHANNELER 07/10/15 Azithromycin* (Zithromax*) 250 Mg Tablet, 250 MG PO .ZPACK DIRECTED, #6 TAB TAKE 500 MG (2 TABS) THE FIRST DAY THEN 250 MG (1 TAB) DAYS 2-5 Prov:RAFA HENAOSTOLOS A. DO 05/27/15 Prednisone* (Prednisone*) 20 Mg Tab, 60 MG PO DAILY for 5 Days, TAB Prov:RAFA HENAOSTOLOS A. DO 05/27/15 Ibuprofen* (Motrin*) 800 Mg Tab, 800 MG PO Q6H Y for PAIN AND OR ELEVATED TEMP, #30 TAB Prov:RAFA HENAOSTOLOS A. DO 05/27/15 Methocarbamol* (Robaxin*) 750 Mg Tablet, 750 MG PO TID, #30 TAB Prov:RAFA HENAOSTOLOS A. DO 05/27/15 Hydrocodone Bit-Acetaminophen* (Jackson*) 7.5-325 Tablet, 2 TAB PO Q4H Y for PAIN , #30 TAB Prov:YUNIELOSRAFASTOLOS A. DO 05/27/15 Azithromycin* (Zithromax*) 250 Mg Tablet, 250 MG PO .ZPACK DIRECTED, #6 TAB TAKE 500 MG (2 TABS) THE FIRST DAY THEN 250 MG (1 TAB) DAYS 2-5 Prov:ESTELLE CASTELLANOS PA-C 04/12/15 Prednisone* (Prednisone*) 20 Mg Tab, 40 MG PO DAILY for 4 Days, TAB Prov:ESTELLE CASTELLANOS PA-C 04/12/15 Benzonatate* (Tessalon Perle*) 100 Mg Capsule, 100 MG PO Q8H Y for COUGH, #30 CAP Prov:ARACELI BUCHANAN MD 04/05/15 Reported Medications Folic Acid* (Folic Acid*) 1 Mg Tablet, 1 MG PO DAILY, TAB 05/22/14 Ferrous Sulfate (Iron Supplement) 1 Tab Tablet, 1 TAB PO DAILY 05/22/14 Vit-Fe Fumarate-FA* (Pk Tablet*) 1 Tab Tablet, 1 TAB PO DAILY, TAB 05/22/14 Allergies Allergies: Coded Allergies: No Known Allergy (Unverified , 08/19/15) PMhx/Soc Medical and Surgical Hx: pt denies Medical Hx, pt denies Surgical Hx History of Surgery: No Anesthesia Reaction: No Hx Neurological Disorder: No Hx Respiratory Disorders: No Hx Cardiac Disorders: No Hx Psychiatric Problems: No Hx Miscellaneous Medical Probl: No Hx Alcohol Use: No Hx Substance Use: No Hx Tobacco Use: No Smoking Status: Never smoker FmHx Family History: No coronary disease Physical Exam Vitals Vital Signs Date Time Temp Pulse Resp B/P Pulse Ox O2 Delivery O2 Flow Rate FiO2 10/07/16 06:53 98.0 83 18 135/74 99 Physical Exam Const: Well-developed, well-nourished Head: Atraumatic, normocephalic Eyes: Normal Conjunctiva, PERRLA, EOMI, normal sclera, no nystagmus ENT: Normal External Ears, Nose and Mouth, moist mucus membranes. Neck: Full range of motion. No meningismus, no lymphadenopathy. Resp: Clear to auscultation bilaterally, no wheezing, rhonchi, rales Cardio: Regular rate and rhythm, no murmurs, S1 S2 present Abd: Soft, non tender x 4, non distended. Normal bowel sounds, no guarding or rebound, no pulsitile abdominal masses or bruits Skin: No petechiae or rashes, no ecchymosis , no maculopapular rash Back: No midline or flank tenderness Ext: No cyanosis, or edema, FROM x 4, normal inspection, neurovascularly intact x 4 Neur: Awake and alert, STR 5/5 x 4, sensation intact x 4, no focal findings, cerebellum intact Psych: Normal Mood and Affect Results 24 hrs Laboratory Tests Test 10/07/16 07:30 Bedside Urine pH (LAB) 5.5 Bedside Urine Protein (LAB) Negative Bedside Urine Glucose (UA) Negative Bedside Urine Ketones (LAB) Negative Bedside Urine Blood Trace-lysed Bedside Urine Nitrite (LAB) Negative Bedside Urine Leukocyte Esterase (L Negative Procedures/MDM PROCEDURE: US Pelvis. CLINICAL INDICATION: pelvic pain , amenorrhea TECHNIQUE: Multiple sonographic images of the pelvis were obtained utilizing a transabdominal and endovaginal technique. The images were reviewed on a PACS workstation. COMPARISON: 06/09/16 FINDINGS: The uterus is normal in size with a normal appearance of the myometrium. The uterus measures 8.9 x 4.6 x 5.1 cm. There is a small hypoechoic mass in the anterior uterus measuring 8 mm, suspicious for a small fibroid. The endometrial stripe is homogeneous in appearance and has the thickness of 8 mm. Normal Doppler flow is identified in both ovaries. The right ovary measures 4.8 x 2.9 x 3.8 cm. There is a 3.1 x 2.5 cm simple cyst in the right ovary. The left ovary measures 3.5 x 1.8 x 2.0 cm. No free fluid is present within the pelvis. RPTAT: AA IMPRESSION: 3.1 cm simple cyst in the right ovary. Small fibroid in the uterus. .Cristo Hurtado MD, MD Date Time Electronically viewed and signed by .Cristo Hurtado MD, MD on 10/07/2016 07: 51 .S/ CC: EFRAIN HENAO DO Patient has a negative test. The patient needs to go see her card doffer to get a workup for amenorrhea. She needs to have FSH, LH, prolactin and based on those studies may need MRI of the pituitary gland. She also needs to be ruled out for primary ovarian failure Departure Diagnosis: Primary Impression: Amenorrhea Condition: Stable Patient Instructions: Amenorrhea Referrals: ANGE CROOK MD, APOSTOLOS A. DO Oct 07, 2016 08:10
== END 2016-10-07 08:27 | disposition home or self-care (01) ==
LOC: FTE 06:46
DX: N91.2 Amenorrhea, unspecified (principal); R10.2 Pelvic and perineal pain
CPT/HCPCS: 76830; 76856; 81003

== ENCOUNTER 2016-11-01 14:21 | Emergency (ER) | payer MEDICAID ==
[~2016-11-01] VITALS: Ht 152.4 cm; Wt 81.0 kg
[2016-11-01 14:32] VITALS: Ht 152.4 cm; Wt 81.0 kg
[2016-11-01] MEDS ORDERED: HYDR-3652 PO (15:50)
[2016-11-01] MEDS ORDERED: IBUP800T25 PO (15:50)
--- NOTE | 2016-11-01 16:00 | ERD ---
ER Documentation Chief Complaint Date/Time DATE: 11/01/16 TIME: 15:59 Chief Complaint flu like symptoms x 10 days HPI 35-year-old female presents with URI type symptoms. The patient describes rhinorrhea, dry nonproductive cough, subjective fevers and no sneezing. Symptoms are approximately 5-7 days. She denies any difficulty breathing or new medications. She has not tried any [id number] medications for the symptoms. She is a non-smoker. ROS All systems reviewed and are negative except as per history of present illness. Medications Home Meds Active Scripts Hydrocodone Bit/Homatrop Me-Br ([place] 5-1.5 mg Tablet) 1 Each Tablet, 1 EACH PO BID Y for COUGH, #10 TAB Prov:IRVIN BAHENA MD 11/01/16 Ibuprofen* (Motrin*) 800 Mg Tab, 800 MG PO Q6H Y for PAIN AND OR ELEVATED TEMP, #30 TAB Prov:IRVIN BAHENA MD 11/01/16 Ibuprofen* (Motrin*) 600 Mg Tab, 600 MG PO Q6H Y for PAIN AND OR ELEVATED TEMP, #30 TAB Prov:TRIXIE PHELPS 06/09/16 Fluticasone Propionate (Flonase Allergy Relief) 9.9 Ml [place].susp, 1 SPRAY NASAL DAILY, #1 BOTTLE TO EACH NOSTRIL Prov:LAURA BARNHART 05/14/16 Prednisone* (Prednisone*) 20 Mg Tab, 40 MG PO DAILY for 4 Days, TAB Prov:LAURA BARNHART 05/14/16 Albuterol Sulfate* (Proair HFA*) 8.5 Gm Hfa.aer.ad, 2 PUFF INH Q4, #1 INHALER Prov:LAURA BARNHART 05/14/16 Fluticasone Propionate (Flonase Allergy Relief) 9.9 Ml [place].susp, 2 SPRAY NASAL DAILY, #1 BOTTLE TO EACH NOSTRIL Prov:BUBBA VILCHIS MD 05/02/16 Promethazine HCl/Codeine (Prometh-Codein 6.25-10 mg/5 ml) 5 Ml Syrup, 5 ML PO Q4 for COUGH, #120 Prov:BUBBA VILCHIS MD 05/02/16 Ibuprofen* (Motrin*) 600 Mg Tab, 600 MG PO Q6, #30 TAB Prov:CLARENCE NEVAREZ PA-C 04/28/16 Dextromethorphan Hb-Promethazine Hcl* (Promethazine DM* Syrup) 473 Ml Syrup, 5 ML PO Q6 Y for COUGH for 7 Days, ML Prov:CLARENCE NEVAREZ-C 04/28/16 Benzonatate* (Tessalon Perle*) 100 Mg Capsule, 100 MG PO Q8H Y for COUGH for 14 Days, CAP Prov:CLARENCE NEVAREZ PA-C 04/28/16 Azithromycin* (Zithromax*) 250 Mg Tablet, 250 MG PO .ZPACK DIRECTED, #6 TAB TAKE 500 MG (2 TABS) THE FIRST DAY THEN 250 MG (1 TAB) DAYS 2-5 Prov:CLARENCE NEVAREZC 04/28/16 Benzonatate* (Tessalon Perle*) 100 Mg Capsule, 100 MG PO Q8H Y for COUGH, #20 CAP Prov:ARACELI BUCHANAN MD 11/05/15 Ibuprofen* (Motrin*) 600 Mg Tab, 600 MG PO Q6H Y for PAIN AND OR ELEVATED TEMP, #30 TAB Prov:ARACELI BUCHANAN MD 11/05/15 Omeprazole* (Prilosec*) 20 Mg Capsule.dr, 20 MG PO DAILY, #30 CAP Prov:LEANNE MOJICA NP 08/19/15 Fluticasone Propionate (Flonase Allergy Relief) 9.9 Ml [place].susp, 1 SPRAY NASAL BID, #1 BOTTLE TO EACH NOSTRIL Prov:LEANNE MOJICA NP 08/19/15 Cetirizine Hcl* (Zyrtec*) 10 Mg Capsule, 10 MG PO DAILY, #30 TAB.CHEW Prov:LEANNE MOJICA NP 08/19/15 Guaifenesin-Codeine Phosphate* (Guaifenesin* with Codeine Liq) 120 Ml Liquid, 5 ML PO Q4H for COUGH, #60 ML Prov:LEANNE MOJICA NP 08/19/15 Hydrocodone Bit-Acetaminophen* ([place]*) 5-325 Mg Tab, 1 TAB PO Q6 Y for PAIN, # 20 TAB Prov:LEANNE MOJICA HYDROMETER CALIBRATOR 08/19/15 Ibuprofen* (Motrin*) 600 Mg Tab, 600 MG PO Q6H Y for PAIN AND OR ELEVATED TEMP, #30 TAB Prov:LEANNE MOJICA HYDROMETER CALIBRATOR 08/19/15 Cyclobenzaprine Hcl* (Cyclobenzaprine Hcl*) 5 Mg Tablet, 5 MG PO Q8H Y for MUSCLE SPASMS, #15 TAB Prov:LEANNE MOJICA HYDROMETER CALIBRATOR 08/19/15 Benzonatate* (Tessalon Perle*) 100 Mg Capsule, 100 MG PO Q8H Y for COUGH, #30 CAP Prov:ROSALIND SWAIN-C 07/30/15 Cetirizine Hcl* (Zyrtec*) 10 Mg Capsule, 10 MG PO DAILY, #30 TAB.CHEW Prov:ROSALIND SWAIN-C 07/30/15 Cetirizine Hcl* (Zyrtec*) 10 Mg Capsule, 10 MG PO DAILY, #10 TAB.CHEW Prov:DICK VALENTIN I. HYDROMETER CALIBRATOR 07/10/15 Azithromycin* (Zithromax*) 250 Mg Tablet, 250 MG PO .ZPACK DIRECTED, #6 TAB TAKE 500 MG (2 TABS) THE FIRST DAY THEN 250 MG (1 TAB) DAYS 2-5 Prov:EFRAIN HENAO DO 05/27/15 Prednisone* (Prednisone*) 20 Mg Tab, 60 MG PO DAILY for 5 Days, TAB Prov:EFRAIN HENAO DO 05/27/15 Ibuprofen* (Motrin*) 800 Mg Tab, 800 MG PO Q6H Y for PAIN AND OR ELEVATED TEMP, #30 TAB Prov:EFRAIN HENAO AKatherin DO 05/27/15 Methocarbamol* (Robaxin*) 750 Mg Tablet, 750 MG PO TID, #30 TAB Prov:EFRAIN HENAO AKatherin DO 05/27/15 Hydrocodone Bit-Acetaminophen* ([place]*) 7.5-325 Tablet, 2 TAB PO Q4H Y for PAIN , #30 TAB Prov:EFRAIN HENAO DO 05/27/15 Azithromycin* (Zithromax*) 250 Mg Tablet, 250 MG PO .ZPACK DIRECTED, #6 TAB TAKE 500 MG (2 TABS) THE FIRST DAY THEN 250 MG (1 TAB) DAYS 2-5 Prov:ESTELLE CASTELLANOS PA-C 04/12/15 Prednisone* (Prednisone*) 20 Mg Tab, 40 MG PO DAILY for 4 Days, TAB Prov:ESTELLE CASTELLANOS PA-C 04/12/15 Benzonatate* (Tessalon Perle*) 100 Mg Capsule, 100 MG PO Q8H Y for COUGH, #30 CAP Prov:ARACELI BUCHANAN MD 04/05/15 Reported Medications Folic Acid* (Folic Acid*) 1 Mg Tablet, 1 MG PO DAILY, TAB 05/22/14 Ferrous Sulfate (Iron Supplement) 1 Tab Tablet, 1 TAB PO DAILY 05/22/14 Vit-Fe Fumarate-FA* (Pk Tablet*) 1 Tab Tablet, 1 TAB PO DAILY, TAB 05/22/14 Allergies Allergies: Coded Allergies: No Known Allergy (Unverified , 08/19/15) PMhx/Soc Medical and Surgical Hx: pt denies Medical Hx, pt denies Surgical Hx History of Surgery: No Anesthesia Reaction: No Hx Neurological Disorder: No Hx Respiratory Disorders: No Hx Cardiac Disorders: No Hx Psychiatric Problems: No Hx Miscellaneous Medical Probl: Yes (Ovarian Cyst) Hx Alcohol Use: No Hx Substance Use: No Hx Tobacco Use: No FmHx Family History: No diabetes Physical Exam Vitals Vital Signs Date Time Temp Pulse Resp B/P Pulse Ox O2 Delivery O2 Flow Rate FiO2 11/01/16 14:32 98.1 97 18 126/59 99 Physical Exam General: Well developed, well nourished, no acute distress Head: Normocephalic, atraumatic. Eyes: Pupils equally reactive, EOM intact ENT: Moist mucous membranes Neck: Supple, no lymphadenopathy, posterior pharynx without swelling or exudate Respiratory: Lungs clear bilaterally, no distress Cardiovascular: RRR, no murmurs, rubs, or gallops Abdominal: Soft, non-tender, non-distended, no peritoneal signs : Deferred MSK: No edema, no unilateral swelling, 5/5 strength Neurologic: Alert and oriented, moving all extremities, normal speech, no focal weakness, no cerebellar signs Skin: No rash Psych: Normal mood Procedures/MDM The patient's clinical presentation is very consistent with an acute viral syndrome. The patient does not exhibit any clinical signs or symptoms concerning for serious bacterial infection or systemic illness. Based on history and clinical exam findings the patient does not appear to have evidence of pneumonia, strep pharyngitis, urinary tract infection, bacteremia, sepsis, or meningitis. For these reasons I do not believe it is necessary to obtain laboratory testing or diagnostic imaging. I believe it would be appropriate for symptom control, and close outpatient primary care follow-up. We discussed follow up with the patient's primary care doctor within 24 to 48 hours as needed. We also discussed return to the emergency room for worsening symptoms or worsening condition. Discharge Medications: Hycodan, Motrin Departure Diagnosis: Primary Impression: Acute bronchitis Bronchitis organism: unspecified organism Qualified Code: J20.9 - Acute bronchitis, unspecified organism Condition: Stable Patient Instructions: Bronchitis, No Antibiotic (Adult) Referrals: [facility] YOU HAVE RECEIVED A MEDICAL SCREENING EXAM AND THE RESULTS INDICATE THAT YOU DO NOT HAVE A CONDITION THAT REQUIRES URGENT TREATMENT IN THE EMERGENCY DEPARTMENT. FURTHER EVALUATION AND TREATMENT OF YOUR CONDITION CAN WAIT UNTIL YOU ARE SEEN IN YOUR DOCTORS OFFICE WITHIN THE NEXT 1-2 DAYS. IT IS YOUR RESPONSIBILITY TO MAKE AN APPOINTMENT FOR [facility]-UP CARE. IF YOU HAVE A PRIMARY DOCTOR --you should call your primary doctor and schedule an appointment IF YOU DO NOT HAVE A PRIMARY DOCTOR YOU CAN CALL OUR PHYSICIAN REFERRAL HOTLINE AT IF YOU CAN NOT AFFORD TO SEE A PHYSICIAN YOU CAN CHOSE FROM THE FOLLOWING [facility] CLINICS [facility] [address] [facility]. [facility] [address] [facility] [facility] [address] [facility] [facility] [address] [facility] [facility] [address] [facility]. [facility]. [address] [facility]. [facility] YOU HAVE RECEIVED A MEDICAL SCREENING EXAM AND THE RESULTS INDICATE THAT YOU DO NOT HAVE A CONDITION THAT REQUIRES URGENT TREATMENT IN THE EMERGENCY DEPARTMENT. FURTHER EVALUATION AND TREATMENT OF YOUR CONDITION CAN WAIT UNTIL YOU ARE SEEN IN YOUR DOCTORS OFFICE WITHIN THE NEXT 1-2 DAYS. IT IS YOUR RESPONSIBILITY TO MAKE AN APPOINTMENT FOR [facility]-UP CARE. IF YOU HAVE A PRIMARY DOCTOR --you should call your primary doctor and schedule and appointment IF YOU DO NOT HAVE A PRIMARY DOCTOR YOU CAN CALL OUR PHYSICIAN REFERRAL HOTLINE AT . IF YOU CAN NOT AFFORD TO SEE A PHYSICIAN YOU CAN CHOSE FROM THE FOLLOWING [facility] INSTITUTIONS: [facility] [address] [place] [address] [facility] [address] [place] [address] [facility] + [facility] [address] [place] [address] Additional Instructions: Call your primary care doctor TOMORROW for an appointment during the next 1 WEEK.Tell the secretary to the vice president that you were referred from this facility.See the doctor sooner or return here if your condition worsens before your appointment time. IRVIN BAHENA MD Nov 01, 2016 15:59
== END 2016-11-01 16:16 | disposition home or self-care (01) ==
LOC: FTE 14:21
DX: J20.9 Acute bronchitis, unspecified (principal)
CPT/HCPCS: 99283

== ENCOUNTER 2016-11-24 16:14 | Emergency (ER) | payer MEDICAID ==
[~2016-11-24] VITALS: Ht 160 cm; Wt 79.0 kg
[~2016-11-24 16:14] MED LIST changes: +HYDR-3652 PO
[2016-11-24 16:22] VITALS: Ht 160 cm; Wt 79.0 kg
[2016-11-24] MEDS ORDERED: DEXAMETHASONE 4 MG TAB PO ONE (17:30)
--- NOTE | 2016-11-24 18:08 | RADRPT ---
PROCEDURE: XR Chest. CLINICAL INDICATION: Shortness of breath. TECHNIQUE: Single frontal view. COMPARISON: 05/14/2016. FINDINGS: The lungs are clear. The heart size is normal. There is no pleural effusion. There is no pneumothorax. IMPRESSION: 1. Normal chest radiograph. RPTAT: QQ .Ronny Castillo MD, MD Date Time Electronically viewed and signed by .Ronny Castillo MD, MD on 11/24/2016 18:08 .R/
[2016-11-24] MEDS ORDERED: D-ME473S18 PO (18:21)
[2016-11-24] MEDS ORDERED: NAPH15DR OP (18:21)
[2016-11-24] MEDS ORDERED: CETI10CA PO (18:21)
--- NOTE | 2016-11-24 18:27 | ERD ---
ER Documentation Chief Complaint Date/Time DATE: 11/24/16 TIME: 18:25 Chief Complaint FEVER AND COUGH X 15 DAYS HPI This 35-year-old female presents with sneezing and coughing for last 15 days. She has had initially right red eye for the last 2 days. She denies fevers or productive mucus. She denies any chest pain, vomiting, abdominal pain. ROS All systems reviewed and are negative except as per history of present illness. Medications Home Meds Active Scripts Dextromethorphan Hb-Promethazine Hcl (Promethazine DM Syrup) 473 Ml Syrup, 5 ML PO Q6 Y for COUGH for 7 Days, ML Prov:BRANDON GUZMAN MD 11/24/16 Naphazoline Hcl/Phenir Mal (Naphcon-A Eye Drops) 15 Ml Drops, 15 ML OP QID for 7 Days, BOTTLE Prov:BRANDON GUZMAN MD 11/24/16 Cetirizine Hcl* (Zyrtec*) 10 Mg Capsule, 10 MG PO DAILY, #30 TAB.CHEW Prov:BRANDON GUZMAN MD 11/24/16 Hydrocodone Bit/Homatrop Me-Br ([place] 5-1.5 mg Tablet) 1 Each Tablet, 1 EACH PO BID Y for COUGH, #10 TAB Prov:IRVIN BAHENA MD 11/01/16 Ibuprofen* (Motrin*) 800 Mg Tab, 800 MG PO Q6H Y for PAIN AND OR ELEVATED TEMP, #30 TAB Prov:IRVIN BAHENA MD 11/01/16 Ibuprofen* (Motrin*) 600 Mg Tab, 600 MG PO Q6H Y for PAIN AND OR ELEVATED TEMP, #30 TAB Prov:TRIXIE PHELPS 06/09/16 Fluticasone Propionate (Flonase Allergy Relief) 9.9 Ml [place].susp, 1 SPRAY NASAL DAILY, #1 BOTTLE TO EACH NOSTRIL Prov:LAURA BARNHART 05/14/16 Prednisone* (Prednisone*) 20 Mg Tab, 40 MG PO DAILY for 4 Days, TAB Prov:LAURA BARNHART 05/14/16 Albuterol Sulfate* (Proair HFA*) 8.5 Gm Hfa.aer.ad, 2 PUFF INH Q4, #1 INHALER Prov:LAURA BARNHART 05/14/16 Fluticasone Propionate (Flonase Allergy Relief) 9.9 Ml [place].susp, 2 SPRAY NASAL DAILY, #1 BOTTLE TO EACH NOSTRIL Prov:BUBBA VILCHIS MD 05/02/16 Promethazine HCl/Codeine (Prometh-Codein 6.25-10 mg/5 ml) 5 Ml Syrup, 5 ML PO Q4 for COUGH, #120 Prov:BUBBA VILCHIS MD 05/02/16 Ibuprofen* (Motrin*) 600 Mg Tab, 600 MG PO Q6, #30 TAB Prov:CLARENCE NEVAREZ-C 04/28/16 Dextromethorphan Hb-Promethazine Hcl* (Promethazine DM* Syrup) 473 Ml Syrup, 5 ML PO Q6 Y for COUGH for 7 Days, ML Prov:CLARENCE NEVAREZ-C 04/28/16 Benzonatate* (Tessalon Perle*) 100 Mg Capsule, 100 MG PO Q8H Y for COUGH for 14 Days, CAP Prov:CLARENCE NEVAREZ-C 04/28/16 Azithromycin* (Zithromax*) 250 Mg Tablet, 250 MG PO .ZPACK DIRECTED, #6 TAB TAKE 500 MG (2 TABS) THE FIRST DAY THEN 250 MG (1 TAB) DAYS 2-5 Prov:CLARENCE NEVAREZ-C 04/28/16 Benzonatate* (Tessalon Perle*) 100 Mg Capsule, 100 MG PO Q8H Y for COUGH, #20 CAP Prov:ARACELI BUCHANAN MD 11/05/15 Ibuprofen* (Motrin*) 600 Mg Tab, 600 MG PO Q6H Y for PAIN AND OR ELEVATED TEMP, #30 TAB Prov:ARACELI BUCHANAN MD 11/05/15 Omeprazole* (Prilosec*) 20 Mg Capsule.dr, 20 MG PO DAILY, #30 CAP Prov:LEANNE MOJICA NP 08/19/15 Fluticasone Propionate (Flonase Allergy Relief) 9.9 Ml [place].susp, 1 SPRAY NASAL BID, #1 BOTTLE TO EACH NOSTRIL Prov:LEANNE MOJICA NP 08/19/15 Cetirizine Hcl* (Zyrtec*) 10 Mg Capsule, 10 MG PO DAILY, #30 TAB.CHEW Prov:LEANNE MOJICA BLUEPRINT CLERK 08/19/15 Guaifenesin-Codeine Phosphate* (Guaifenesin* with Codeine Liq) 120 Ml Liquid, 5 ML PO Q4H for COUGH, #60 ML Prov:LEANNE MOJICA BLUEPRINT CLERK 08/19/15 Hydrocodone Bit-Acetaminophen* ([place]*) 5-325 Mg Tab, 1 TAB PO Q6 Y for PAIN, # 20 TAB Prov:LEANNE MOJICA BLUEPRINT CLERK 08/19/15 Ibuprofen* (Motrin*) 600 Mg Tab, 600 MG PO Q6H Y for PAIN AND OR ELEVATED TEMP, #30 TAB Prov:LEANNE MOJICA BLUEPRINT CLERK 08/19/15 Cyclobenzaprine Hcl* (Cyclobenzaprine Hcl*) 5 Mg Tablet, 5 MG PO Q8H Y for MUSCLE SPASMS, #15 TAB Prov:LEANNE MOJICA NP 08/19/15 Benzonatate* (Tessalon Perle*) 100 Mg Capsule, 100 MG PO Q8H Y for COUGH, #30 CAP Prov:ROSALIND SWAINC 07/30/15 Cetirizine Hcl* (Zyrtec*) 10 Mg Capsule, 10 MG PO DAILY, #30 TAB.CHEW Prov:ROSALIND SWAIN-C 07/30/15 Cetirizine Hcl* (Zyrtec*) 10 Mg Capsule, 10 MG PO DAILY, #10 TAB.CHEW Prov:DICK VALENTIN I. BLUEPRINT CLERK 07/10/15 Azithromycin* (Zithromax*) 250 Mg Tablet, 250 MG PO .MARTIN DIRECTED, #6 TAB TAKE 500 MG (2 TABS) THE FIRST DAY THEN 250 MG (1 TAB) DAYS 2-5 Prov:EFRAIN HENAO DO 05/27/15 Prednisone* (Prednisone*) 20 Mg Tab, 60 MG PO DAILY for 5 Days, TAB Prov:EFRAIN HENAO DO 05/27/15 Ibuprofen* (Motrin*) 800 Mg Tab, 800 MG PO Q6H Y for PAIN AND OR ELEVATED TEMP, #30 TAB Prov:EFRAIN HENAO. DO 05/27/15 Methocarbamol* (Robaxin*) 750 Mg Tablet, 750 MG PO TID, #30 TAB Prov:EFRAIN HENAO. DO 05/27/15 Hydrocodone Bit-Acetaminophen* ([place]*) 7.5-325 Tablet, 2 TAB PO Q4H Y for PAIN , #30 TAB Prov:EFRAIN HENAO. DO 05/27/15 Azithromycin* (Zithromax*) 250 Mg Tablet, 250 MG PO .ZPACK DIRECTED, #6 TAB TAKE 500 MG (2 TABS) THE FIRST DAY THEN 250 MG (1 TAB) DAYS 2-5 Prov:ESTELLE CASTELLANOS PA-C 04/12/15 Prednisone* (Prednisone*) 20 Mg Tab, 40 MG PO DAILY for 4 Days, TAB Prov:ESTELLE CASTELLANOS PA-C 04/12/15 Benzonatate* (Tessalon Perle*) 100 Mg Capsule, 100 MG PO Q8H Y for COUGH, #30 CAP Prov:ARACELI BUCHANAN MD 04/05/15 Reported Medications Folic Acid* (Folic Acid*) 1 Mg Tablet, 1 MG PO DAILY, TAB 05/22/14 Ferrous Sulfate (Iron Supplement) 1 Tab Tablet, 1 TAB PO DAILY 05/22/14 Vit-Fe Fumarate-FA* (Pk Tablet*) 1 Tab Tablet, 1 TAB PO DAILY, TAB 05/22/14 Allergies Allergies: Coded Allergies: No Known Allergy (Unverified , 08/19/15) PMhx/Soc History of Surgery: No Anesthesia Reaction: No Hx Neurological Disorder: No Hx Respiratory Disorders: No Hx Cardiac Disorders: No Hx Psychiatric Problems: No Hx Miscellaneous Medical Probl: Yes (Ovarian Cyst) Hx Alcohol Use: No Hx Substance Use: No Hx Tobacco Use: No Smoking Status: Never smoker Physical Exam Vitals Vital Signs Date Time Temp Pulse Resp B/P Pulse Ox O2 Delivery O2 Flow Rate FiO2 11/24/16 16:22 98.3 89 18 122/92 98 Physical Exam Const: [], [id number]. Head: Atraumatic Eyes: Right scleral redness. Eyes PERRLA and extraocular movements intact. No peripheral swelling or proptosis ENT: Normal External Ears, Nose and Mouth.Clear nasal discharge. Mouth clear oropharynx normal. Neck: Full range of motion..~ No meningismus. Resp: Clear to auscultation bilaterally Cardio: Regular rate and rhythm, no murmurs Abd: Soft, non tender, non distended. Normal bowel sounds Skin: No petechiae or rashes Back: No midline or flank tenderness Ext: No cyanosis, or edema Neur: Awake and alert Psych: Normal Mood and Affect Results 24 hrs Current Medications Medications (Trade) Dose Ordered Sig/Tayo Route PRN Reason Start Time Stop Time Status Last Admin Dose Admin Dexamethasone (Decadron) 8 mg ONCE ONCE PO 11/24/16 17:30 11/24/16 17:31 DC 11/24/16 17:43 Procedures/MDM Chest X-ray 1V Interpreted by me: Soft Tissue: No acute abnormalities Bones: No acute abnormalities Mediastinum/Cardiac Silhouette/Lungs: [No acute abnormalities] . Impression-normal 1 view chest Patient presents with coughing and sneezing and red right eye worsening over the last 2 weeks. There is no signs of significant bacterial infection. She appears to have allergic conjunctivitis and rhinitis. No evidence of hypoxemia or respiratory distress. She will treated with Zyrtec, promethazine and Naphcon and primary care follow-up and return precautions. The patient was stable with no new complaints during the ER course. Clinically, there is no current evidence to suggest meningitis, sepsis, acute abdomen, pneumonia, acute coronary syndrome, pulmonary embolism, or any other emergent condition appearing to require further evaluation or hospitalization. The patient should certainly return for any new or worsening symptoms per the aftercare instructions. They should otherwise follow-up with her primary care doctor for reevaluation this week. Departure Diagnosis: Primary Impression: Allergic rhinitis Chronicity: acute Allergic rhinitis trigger: unspecified Allergic rhinitis seasonality: unspecified seasonality Qualified Code: J30.9 - Acute allergic rhinitis, unspecified seasonality, unspecified trigger Condition: Stable Patient Instructions: Conjunctivitis, Non-Specific, Cough, Chronic, Uncertain Cause, (Adult), Allergic Rhinitis Additional Instructions: X-ray normal today. See primary doctor for further evaluation return to ER for new or worsening symptoms. Likely allergic symptoms BRANDON GUZMAN MD Nov 24, 2016 18:27
== END 2016-11-24 18:34 | disposition home or self-care (01) ==
LOC: FTE 16:14
DX: J30.9 Allergic rhinitis, unspecified (principal)
CPT/HCPCS: 71010; Z7502; Z7610

== ENCOUNTER 2017-03-19 04:53 | Emergency (ER) | END 2017-03-19 07:58 | disposition home or self-care (01) ==

== ENCOUNTER 2017-07-20 08:01 | Emergency (ER) | END 2017-07-20 10:14 | disposition home or self-care (01) ==